=== PATIENT | female | born 1965 | race Caucasian/White ===

== ENCOUNTER 2017-01-17 14:05 | Emergency (ER) | payer OTHER ==
[2017-01-17 14:14] VITALS: BP 153/78
[2017-01-17] MEDS ORDERED: Diphtheria,Pertussis(Acell),Tetanus Vaccine 0.5 ML SDV IM ONE (14:15)
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
--- NOTE | 2017-01-17 14:39 | CR ---
Chest 1V Frontal HISTORY: No Clinical Info FINDINGS: Heart size within normal limits. Pulmonary vasculature within normal limits. No evidence f or focal consolidation or cardiopulmonary process. IMPRESSION: No radiographic evidence for acute cardiopulmonary process.
--- NOTE | 2017-01-17 14:46 | CT ---
CT head. Total DOP 2196. Findings: No mass effect or midline shift. No hemorrhage. No subacute territorial infarct. Right fro ntal temporal scalp hematoma. Left frontal scalp hematoma. Underlying calvarium is intact. Impression: 1. Scalp hematomas. 2. No acute intracranial process by CT.
--- NOTE | 2017-01-17 14:52 | CT ---
CT cervical spine Total DOP 2196. Findings: No fracture or acute alignment abnormality of the cervical spine. Vertebral body heights a re well-maintained. Disc heights are maintained as well. Impression: 1. No acute osseous abnormality of the cervical spine.
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
[2017-01-17] MEDS ORDERED: Acetaminophen/HYDROcodone 325-5 MG Tab PO ONE (15:41)
[2017-01-17] MEDS ORDERED: Ibuprofen 600 MG Tab PO ONE (15:44)
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
== END 2017-01-17 17:26 | disposition home or self-care (01) ==
LOC: JP.ED 14:05
DX: S32.019A Unspecified fracture of first lumbar vertebra, initial encounter for closed fracture (principal); S00.03XA Contusion of scalp, initial encounter; S60.512A Abrasion of left hand, initial encounter; Z23 Encounter for immunization; Z79.82 Long term (current) use of aspirin; Z79.899 Other long term (current) drug therapy; X58.XXXA Exposure to other specified factors, initial encounter
CPT/HCPCS: 36415; 70450; 71010; 72110; 72125; 72128; 80053; 85025; 90471; 90715; 99285; A9270; 99283